=== PATIENT | male | born 1955 | race Caucasian/White ===

== ENCOUNTER → 2017-07-24 | Outpatient (CLI) | payer OTHER ==
[~2017-07-24] MED LIST: ASPI81CH; CLON.1; FENO54; Glucophage1000 MG; HYDHCL25 PO; INSUASPI; NEBI10 PO; Omeprazole20 M1 PO; Prednisone20 MG PO; SPIR25; Spironolactone25 MG; TRULICITY0.75 MG/0.
== END | disposition home or self-care (01) ==
LOC: LAB SHORT 12:11 → PLD 12:11
DX: D22.4 Melanocytic nevi of scalp and neck (principal)
CPT/HCPCS: 88304

== ENCOUNTER 2017-07-25 10:53 | Day surgery (SDC) | payer OTHER ==
[~2017-07-25] VITALS: Ht 188 cm; Wt 124.4 kg
== END 2017-07-25 12:47 | disposition home or self-care (01) ==
LOC: ORSCSDS 10:53
DX: Z86.010 Personal history of colon polyps (principal); D12.0 Benign neoplasm of cecum; D12.3 Benign neoplasm of transverse colon; K63.5 Polyp of colon; K62.1 Rectal polyp; K64.8 Other hemorrhoids; K57.30 Diverticulosis of large intestine without perforation or abscess without bleeding; E11.9 Type 2 diabetes mellitus without complications; I10 Essential (primary) hypertension; Z79.4 Long term (current) use of insulin
CPT/HCPCS: 82947; 88305; J1980; J7120

== ENCOUNTER → 2017-08-16 | Outpatient (CLI) | payer OTHER | END | disposition home or self-care (01) | LOC: LAB SHORT 15:10 → PLD 15:10 | DX: D48.5 Neoplasm of uncertain behavior of skin (principal) | CPT/HCPCS: 88305 ==

== ENCOUNTER → 2017-09-25 | Outpatient (CLI) | payer OTHER | END | disposition home or self-care (01) | LOC: LAB SHORT 14:11 → PLD 14:11 | DX: D48.5 Neoplasm of uncertain behavior of skin (principal) | CPT/HCPCS: 88305 ==

== ENCOUNTER 2018-04-19 07:55 | Day surgery (SDC) | payer BC ==
[~2018-04-19] VITALS: Ht 188 cm; Wt 129.0 kg
[~2018-04-19 07:55] MED LIST changes: +ALEVE220 MG PO; +Aldactone25 MG PO; +Aspirin EC81 MG PO; +Bystolic20 MG PO; +CLON.3 PO; +DICLO GEL1 EACH TOP; +FENO160 PO; +Glucophage1000 MG PO; +LISI20 PO; +Novolog100 UNIT/1 SC; +SILDENAFIL CIT100 MG PO
--- NOTE | 2018-04-19 10:23 | NUR ---
04/19/18 [address] NGUYỄN AT BEDSIDE WITH SONOSITE. INJ 10ML BUP/LIDO. PT TOLERATED WELL.
== END 2018-04-19 10:31 | disposition home or self-care (01) ==
LOC: ORSCSDS 07:55
PROVIDERS: Orthopaedic Surgery
PROC: 01N54ZZ Release Median Nerve, Percutaneous Endoscopic Approach (ICD-10-PCS; principal; 2018-04-19 09:15)
DX: G56.02 Carpal tunnel syndrome, left upper limb (principal); I10 Essential (primary) hypertension; E10.9 Type 1 diabetes mellitus without complications; Z87.891 Personal history of nicotine dependence; Z79.899 Other long term (current) drug therapy; Z79.82 Long term (current) use of aspirin
CPT/HCPCS: 82947; J0360; J0690; J2250; J3010; J7120

== ENCOUNTER 2020-07-02 14:29 | Emergency (ER) | payer MEDICARE ==
[~2020-07-02] VITALS: Ht 188 cm; Wt 130.6 kg
[~2020-07-02 14:29] MED LIST changes: -Aldactone25 MG PO; -Aspirin EC81 MG PO; -CLON.3 PO; -FENO160 PO; -Glucophage1000 MG PO; -LISI20 PO; +Lasix20 MG PO; -Novolog100 UNIT/1 SC
[2020-07-02 15:39] LABS: BASOPHILS ABSOLUTE AUTO 0.04 K/mm3 (0.00-0.23); BASOPHILS PERCENT AUTO 1 % (0-2); EOSINOPHILS ABSOLUTE AUTO 0.14 K/mm3 (0.00-0.68); EOSINOPHILS PERCENT AUTO 2 % (0-6); Hematocrit 46.1 % (37.0-53.0); Hemoglobin 15.5 g/dL (13.5-17.5); IMMATURE GRAN ABSOLUTE AUTO 0.03 K/mm3 (0.00-0.10); IMMATURE GRAN PERCENT AUTO 0 % (0-1); LYMPHOCYTES ABSOLUTE AUTO 2.23 K/mm3 (0.84-5.20); LYMPHOCYTES PERCENT AUTO 30 % (21-46); MONOCYTES ABSOLUTE AUTO 0.82 K/mm3 (0.16-1.47); MONOCYTES PERCENT AUTO 11 % (4-13); Mean Corpuscular HGB 29.2 pg (26.0-34.0); Mean Corpuscular HGB Conc 33.6 g/dL (31.5-36.5); Mean Corpuscular Volume 87 fL (80-100); Mean Platelet Volume 10.6 fL (9.1-12.4); NEUTROPHILS ABSOLUTE AUTO 4.24 K/mm3 (1.96-9.15); NEUTROPHILS PERCENT AUTO 57 % (41-73); Platelet Count 244 K/mm3 (150-400); RDW Coefficient Variation 12.6 % (11.7-14.2); RDW Standard Deviation 39.9 fL (35.1-46.3); Red Blood Cell Count 5.31 M/mm3 (4.30-5.90)
[2020-07-02 15:55] LABS: Alanine Aminotransfer (ALT/SGP 36 U/L (12-78); Albumin, Blood 3.6 g/dL (3.4-5.0); Albumin/Globulin Ratio 1.2 (0.8-1.8); Alk Phos 53 U/L (50-136); Anion Gap 8 mmol/L (6-16); Aspartate Aminotrans (AST/SGOT 21 U/L (12-37); Bilirubin, Total 0.7 mg/dL (0.1-1.0); Blood Urea Nitrogen 28 mg/dL (8-24); C-REACTIVE PROTEIN, EXT RANGE <0.290 mg/dL (0.000-0.300); CO2, Blood 24 mmol/L (21-32); Calcium, Blood 8.6 mg/dL (8.5-10.1); Chloride, Blood 113 mmol/L (98-108); Creatinine, Blood 1.27 mg/dL (0.60-1.20); Globulin, Blood 3.1 g/dL (2.2-4.0); Glomerular Filtration Rate >60 (60-); Glucose, Blood 90 mg/dL (70-99); Potassium, Blood 4.1 mmol/L (3.5-5.5); Sodium, Blood 145 mmol/L (136-145); Total Protein, Blood 6.7 g/dL (6.4-8.2)
== END 2020-07-02 19:30 | disposition home or self-care (01) ==
LOC: ER 14:29
PROVIDERS: Physician Assistant
DX: H54.62 Unqualified visual loss, left eye, normal vision right eye (principal); Z79.82 Long term (current) use of aspirin; Z79.4 Long term (current) use of insulin
CPT/HCPCS: 36415; 70543; 70553; 80053; 82947; 85025; 85651; 86140; 99284-25; A9579

== ENCOUNTER 2020-07-07 16:11 | Inpatient (IN) | payer MEDICARE, OTHER ==
[~2020-07-07] VITALS: Ht 188 cm; Wt 130.6 kg
[2020-07-07 16:50] LABS: Calcium, Ionized (POC) 1.02 mmol/L (1.10-1.46); Chloride (POC) 109 mmol/L (98-108); Creatinine (POC) 1.5 mg/dL (0.8-1.3); Glucose (ISTAT POC) 438 mg/dL (70-99); Hemoglobin (POC) 17.3 g/dL (13.5-17.5); Potassium (POC) 6.2 mmol/L (3.5-5.5); Sodium (POC) 134 mmol/L (135-148); Total CO2 (POC) 7 mmol/L (21-32)
[2020-07-07 16:55] LABS: Source, Urine Clean Catch
[2020-07-07 17:00] LABS: Appearance, Urine Clear (Clear); Bilirubin, Urine Neg (Neg); Blood, Urine 3+ (Neg); Color, Urine Yellow (P-Yellow); Glucose Qualitative, Urine 4+ (Neg); Ketones, Urine 4+ (Neg); Leukocyte Esterase, Urine Neg (Neg); Nitrite, Urine Neg (Neg); Protein, Urine 3+ (Neg); Specific Gravity, Urine 1.025 (1.003-1.022); Urobilinogen, Urine NORM (Normal)
[2020-07-07 17:18] LABS: BASOPHILS ABSOLUTE AUTO 0.08 K/mm3 (0.00-0.23); BASOPHILS PERCENT AUTO 0 % (0-2); EOSINOPHILS ABSOLUTE AUTO 0.01 K/mm3 (0.00-0.68); EOSINOPHILS PERCENT AUTO 0 % (0-6); Hematocrit 50.5 % (37.0-53.0); Hemoglobin 16.6 g/dL (13.5-17.5); IMMATURE GRAN ABSOLUTE AUTO 0.22 K/mm3 (0.00-0.10); IMMATURE GRAN PERCENT AUTO 1 % (0-1); LYMPHOCYTES ABSOLUTE AUTO 1.48 K/mm3 (0.84-5.20); LYMPHOCYTES PERCENT AUTO 8 % (21-46); MONOCYTES ABSOLUTE AUTO 0.61 K/mm3 (0.16-1.47); MONOCYTES PERCENT AUTO 3 % (4-13); Mean Corpuscular HGB 29.4 pg (26.0-34.0); Mean Corpuscular HGB Conc 32.9 g/dL (31.5-36.5); Mean Corpuscular Volume 90 fL (80-100); Mean Platelet Volume 11.5 fL (9.1-12.4); NEUTROPHILS ABSOLUTE AUTO 16.31 K/mm3 (1.96-9.15); NEUTROPHILS PERCENT AUTO 87 % (41-73); Platelet Count 330 K/mm3 (150-400); RDW Coefficient Variation 12.4 % (11.7-14.2); RDW Standard Deviation 40.5 fL (35.1-46.3); Red Blood Cell Count 5.64 M/mm3 (4.30-5.90); White Blood Cell Count 18.71 K/mm3 (4.00-11.30)
[2020-07-07 18:02] LABS: Bacteria Rare /hpf; Hyaline Casts 0-2 /lpf (0-2); Squamous Epithelial Cells Rare /hpf (Few); White Blood Cells, Urine 0-2 /hpf (0-5)
[2020-07-07 18:57] LABS: Albumin, Blood 4.4 g/dL (3.4-5.0); Albumin/Globulin Ratio 1.1 (0.8-1.8); Bilirubin, Total 0.8 mg/dL (0.1-1.0); Bun/Creatinine Ratio 22.2 (12.0-20.0); Calcium, Blood 8.6 mg/dL (8.5-10.1); Creatinine, Blood 1.44 mg/dL (0.60-1.20); Globulin, Blood 3.9 g/dL (2.2-4.0); Potassium, Blood 5.9 mmol/L (3.5-5.5); Total Protein, Blood 8.3 g/dL (6.4-8.2)
[2020-07-07] MEDS ORDERED: CARVEDILOL6.25 MG PO (19:13)
[2020-07-07] MEDS ORDERED: GLUCOPHAGE1000 M1 PO (19:13)
[2020-07-07] MEDS ORDERED: NOVOLOG100 UNIT/2 (19:14)
[2020-07-07] MEDS ORDERED: Aldactone25 MG PO (19:14)
[2020-07-07] MEDS ORDERED: Omeprazole20 M1 PO (19:14)
[2020-07-07] MEDS ORDERED: CLON.3 PO (19:15)
[2020-07-07] MEDS ORDERED: FUROSEMIDE40 MG PO (19:15)
[2020-07-07] MEDS ORDERED: ATOR10 PO (19:15)
[2020-07-07] MEDS ORDERED: LISI20 PO (19:16)
[2020-07-07] MEDS ORDERED: Aspirin EC81 MG PO (19:16)
[2020-07-07] MEDS ORDERED: FENO160 PO (19:16)
[2020-07-07 19:34] LABS: Beta-hydroxybutyrate 124.1 mg/dL (0.2-2.8)
[2020-07-07 19:36] LABS: pH Blood Venous 7.02 (7.34-7.37)
[2020-07-07 19:37] LABS: Base Excess Venous -23.9 mmol/L; Bicarbonate Venous 9.4 mmol/L (24.0-30.0); PCO2 Venous 27.3 mmHg (38-42); PO2 Venous 121 mmHg (38-42)
[2020-07-07 20:47] LABS: Bun/Creatinine Ratio 23.5 (12.0-20.0); Calcium, Blood 8.3 mg/dL (8.5-10.1); Creatinine, Blood 1.53 mg/dL (0.60-1.20); Potassium, Blood 6.3 mmol/L (3.5-5.5)
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
[2020-07-08 02:20] LABS: BASOPHILS ABSOLUTE AUTO 0.06 K/mm3 (0.00-0.23); BASOPHILS PERCENT AUTO 0 % (0-2); EOSINOPHILS PERCENT AUTO 0 % (0-6); Hematocrit 45.3 % (37.0-53.0); IMMATURE GRAN ABSOLUTE AUTO 0.16 K/mm3 (0.00-0.10); IMMATURE GRAN PERCENT AUTO 1 % (0-1); LYMPHOCYTES ABSOLUTE AUTO 2.02 K/mm3 (0.84-5.20); LYMPHOCYTES PERCENT AUTO 11 % (21-46); MONOCYTES ABSOLUTE AUTO 1.42 K/mm3 (0.16-1.47); MONOCYTES PERCENT AUTO 8 % (4-13); Mean Corpuscular HGB 29.4 pg (26.0-34.0); Mean Corpuscular HGB Conc 33.1 g/dL (31.5-36.5); Mean Corpuscular Volume 89 fL (80-100); Mean Platelet Volume 10.6 fL (9.1-12.4); NEUTROPHILS ABSOLUTE AUTO 14.27 K/mm3 (1.96-9.15); NEUTROPHILS PERCENT AUTO 80 % (41-73); Platelet Count 271 K/mm3 (150-400); RDW Coefficient Variation 12.7 % (11.7-14.2); RDW Standard Deviation 41.3 fL (35.1-46.3); Red Blood Cell Count 5.11 M/mm3 (4.30-5.90); White Blood Cell Count 17.93 K/mm3 (4.00-11.30)
[2020-07-08 02:38] LABS: Albumin, Blood 3.7 g/dL (3.4-5.0); Albumin/Globulin Ratio 1.1 (0.8-1.8); Bilirubin, Total 0.7 mg/dL (0.1-1.0); Bun/Creatinine Ratio 25.6 (12.0-20.0); Calcium, Blood 7.5 mg/dL (8.5-10.1); Creatinine, Blood 1.68 mg/dL (0.60-1.20); Globulin, Blood 3.3 g/dL (2.2-4.0); Potassium, Blood 5.5 mmol/L (3.5-5.5)
--- NOTE | 2020-07-08 07:15 | NUR ---
Assumed care of pt at 0700. Bedside report received from Joelle VILLAR. Pt A&O x 4. Answers questions. Follows commands. Verbalizes needs. Pleasant and cooperative with care. SR per monitor. Pt on room air. SpO2 90% or greater. Lungs clear t/o. Pt denies nausea or vomiting. States he is feeling generally well and says he wants to go home today.
--- NOTE | 2020-07-08 08:35 | NUR ---
Dr Wheeler in to see patient. BMP drawn. RN to notify Dr Wheeler for results.
[2020-07-08 09:00] LABS: Bun/Creatinine Ratio 28.2 (12.0-20.0); Calcium, Blood 7.9 mg/dL (8.5-10.1); Creatinine, Blood 1.31 mg/dL (0.60-1.20); Potassium, Blood 4.2 mmol/L (3.5-5.5)
--- NOTE | 2020-07-08 10:00 | NUR ---
Call placed to Dr Wheeler to discuss recent labs. Orders given to provide 15 units lantus, shut off insulin drip 30 minutes afterwards and have pt connect to his own pump and regular settings.
[2020-07-08 14:32] LABS: Bun/Creatinine Ratio 28.6 (12.0-20.0); Creatinine, Blood 1.33 mg/dL (0.60-1.20); Potassium, Blood 4.8 mmol/L (3.5-5.5)
--- NOTE | 2020-07-08 16:00 | NUR ---
Call placed to Dr Wheeler with repeat labs. States pt can be medical floor status with telemetry. Plan to keep pt over night. Update given to pt and spouse, who is visiting at bedside.
--- NOTE | 2020-07-08 18:59 | NUR ---
SUMMARY Pt resting in bed at this time. Pt's blood sugars have been in 300s since IV insulin has stopped. Pt is receiving NS at 100 mL per hour x 1 bag. Also to receive dose of Semglee tonight. Will continue to monitor until bedside report and handoff with oncoming RN.
[2020-07-08 20:54] LABS: Bun/Creatinine Ratio 25.2 (12.0-20.0); Calcium, Blood 8.3 mg/dL (8.5-10.1); Creatinine, Blood 1.39 mg/dL (0.60-1.20); Potassium, Blood 4.7 mmol/L (3.5-5.5)
--- NOTE | 2020-07-08 22:45 | NUR ---
PT MEDICATED ONCE WITH HYDRALAZINE 10 MG PER IV SECONDARY TO HYPERTENSION. PT DOES REFUSE HIS HS DOES OF 0.3 MG CLONIDINE. 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 PT TRANSFERRED TO ROOM 331 FROM ICU 8. PT IN STABLE CONDITION. CALL MADE TO DR LIMON - HOSPITALIST FOR INSULIN ORDER SECONDARY TO CBG 400 +. ORDER RECEIVED. REPORT GIVEN TO SN IV[facility] IN [facility]. ALLOWED FOR QUESTIONS.
--- NOTE | 2020-07-08 23:49 | NUR ---
TRANSFER NOTE HAND-OFF RECEIVED FROM ICU NURSE TRINY. PT ARRIVED TO FLOOR VIA WC. PT ORIENTED TO UNIT. CALL BUTTON WITHIN REACH. PERSONAL POSSESSIONS WITH PT.
--- NOTE | 2020-07-09 04:55 | NUR ---
SHIFT SUMMARY ADMITTED FOR RESOLVED DKA FROM ICU. FULL CODE. PT HAS FLUCTUATING BLOOD SUGARS AROUND 350 TO 400. PLAN TO CONTINUE MONITORING AND TREATING ELEVATED SUGARS. PT HAS HOME INSULIN PUMP GIVING BASAL RATE. NO SIGNS OF ALCOHOL WITHDRAWAL. PT RESTING IN BED.
--- NOTE | 2020-07-09 05:02 | NUR ---
CTA/EXPERIMENTAL OUTBOARD MOTORS MECHANIC I HAVE ASSESSED THIS PT. I HAVE READ THE EXPERIMENTAL OUTBOARD MOTORS MECHANIC'S DOCUMENTATION AND I AGREE. SHIFT SUMMARY IS LOCATED IN EXPERIMENTAL OUTBOARD MOTORS MECHANIC'S NOTES
[2020-07-09 05:53] LABS: BASOPHILS ABSOLUTE AUTO 0.03 K/mm3 (0.00-0.23); BASOPHILS PERCENT AUTO 0 % (0-2); EOSINOPHILS ABSOLUTE AUTO 0.09 K/mm3 (0.00-0.68); EOSINOPHILS PERCENT AUTO 1 % (0-6); Hematocrit 44.8 % (37.0-53.0); Hemoglobin 15.2 g/dL (13.5-17.5); IMMATURE GRAN ABSOLUTE AUTO 0.02 K/mm3 (0.00-0.10); IMMATURE GRAN PERCENT AUTO 0 % (0-1); LYMPHOCYTES PERCENT AUTO 20 % (21-46); MONOCYTES ABSOLUTE AUTO 0.71 K/mm3 (0.16-1.47); MONOCYTES PERCENT AUTO 10 % (4-13); Mean Corpuscular HGB 29.1 pg (26.0-34.0); Mean Corpuscular HGB Conc 33.9 g/dL (31.5-36.5); Mean Corpuscular Volume 86 fL (80-100); Mean Platelet Volume 10.6 fL (9.1-12.4); NEUTROPHILS PERCENT AUTO 68 % (41-73); Platelet Count 204 K/mm3 (150-400); RDW Coefficient Variation 12.4 % (11.7-14.2); RDW Standard Deviation 38.9 fL (35.1-46.3); Red Blood Cell Count 5.23 M/mm3 (4.30-5.90); White Blood Cell Count 6.95 K/mm3 (4.00-11.30)
[2020-07-09 06:14] LABS: Alanine Aminotransfer (ALT/SGP 30 U/L (12-78); Albumin, Blood 3.4 g/dL (3.4-5.0); Albumin/Globulin Ratio 1.1 (0.8-1.8); Alk Phos 62 U/L (50-136); Anion Gap 11 mmol/L (6-16); Aspartate Aminotrans (AST/SGOT 13 U/L (12-37); Blood Urea Nitrogen 30 mg/dL (8-24); Bun/Creatinine Ratio 26.1 (12.0-20.0); CO2, Blood 20 mmol/L (21-32); Calcium, Blood 8.3 mg/dL (8.5-10.1); Chloride, Blood 107 mmol/L (98-108); Creatinine, Blood 1.15 mg/dL (0.60-1.20); Globulin, Blood 3.1 g/dL (2.2-4.0); Glomerular Filtration Rate >60 (60-); Glucose, Blood 324 mg/dL (70-99); Magnesium, Blood 2.5 mg/dL (1.6-2.4); Potassium, Blood 4.5 mmol/L (3.5-5.5); Sodium, Blood 138 mmol/L (136-145); Total Protein, Blood 6.5 g/dL (6.4-8.2)
--- NOTE | 2020-07-09 20:01 | NUR ---
discharged home with family, escorted to elevator by staff, reviewed stay, medications, discharge instructions and follow up appointments, pt cbg was over 400 when left on pump but juni win brought it down to 200's, pt evangelista pump not working
== END 2020-07-09 17:10 | disposition home or self-care (01) | DRG 638 ==
LOC: ER 16:11 → ICUE 16:12 → ER 16:12 → ICUW 16:12 → ICUE 16:12 → ICUW 21:20 → ICUE 21:20 → ICUW 07-08 14:06 → ICUE 07-08 15:14 → MEDS 07-08 22:49
PROVIDERS: Emergency Medicine; Internal Medicine; Physician Assistant; ADMIT Internal Medicine
DX: E11.10 Type 2 diabetes mellitus with ketoacidosis without coma (principal); E87.2 Acidosis; Z96.41 Presence of insulin pump (external) (internal); I48.91 Unspecified atrial fibrillation; I10 Essential (primary) hypertension; E78.5 Hyperlipidemia, unspecified; K21.9 Gastro-esophageal reflux disease without esophagitis; E86.0 Dehydration; E66.9 Obesity, unspecified; Z68.37 Body mass index [BMI] 37.0-37.9, adult; Z79.4 Long term (current) use of insulin; Z79.82 Long term (current) use of aspirin
CPT/HCPCS: 36415; 71046; 80047; 80048; 80053; 81001; 82010; 82803; 82947; 83735; 85014; 85025; 93005; 93010; 93306; 96372; 96374; 96375; 96376; 99285-25; A9270; A9270-GY; G0378; J0360; J1650; J1815; J2405; J2765; J7030; J7042